=== PATIENT | female | born 1980 | race Caucasian/White ===

== ENCOUNTER → 2024-09-13 | Outpatient (CLI) | payer BC, SELFPAY ==
--- NOTE | 2024-09-13 08:02 | US_ITS ---
EXAM: US ABDOMEN COMPLETE CLINICAL INDICATION: Bloated/ distended abdomen TECHNIQUE: Real-time ultrasound of the abdomen with image documentation. COMPARISON: No relevant prior studies available. FINDINGS: LIVER: No significant abnormality. There is normal echotexture. No focal hepatic lesion. No intrahepatic biliary ductal dilation. GALLBLADDER: Gallbladder sludge is identified. Possible 5 mm polyp rather than a stone as there is no significant shadowing in this lesion appears fixed to the gallbladder wall. No gallbladder wall thickening. Negative sonographic García''s sign. No pericholecystic fluid. COMMON BILE DUCT: Normal as visualized. The proximal common bile duct is within normal limits for the patient''s age. PANCREAS: Normal as visualized. No focal abnormality is demonstrated in the pancreas. No pancreatic ductal dilatation. KIDNEYS: No significant abnormality. There is no hydronephrosis. No shadowing calculus. No focal lesion or perinephric collection is demonstrated. SPLEEN: No significant abnormality. The spleen is normal in size and homogeneous in echotexture. AORTA: No significant abnormality. Submitted longitudinal images of the intra-abdominal aorta demonstrate no gross abnormalities and are unremarkable. INFERIOR VENA CAVA: No significant abnormality. The IVC is patent. FREE FLUID: There is no free fluid. US/Abdomen Complete IMPRESSION: 1. Sludge in the gallbladder. Possible 5 mm polyp rather than a stone as there is no significant shadowing in this lesion appears fixed to the gallbladder wall. Consider short interval follow-up in 1-2 months with optimized technique and patient preparation. 2. No cholecystitis or additional acute findings. Electronically Signed: Be Rothman DO at 21:45 EDT ,
== END | disposition home or self-care (01) ==
PROVIDERS: PCP Internal Medicine; Referring Provider Internal Medicine; Visit Provider Internal Medicine
DX: R14.0 Abdominal distension (gaseous) (principal)
CPT/HCPCS: 76700

== ENCOUNTER → 2024-09-16 | Outpatient (CLI) | payer BC, SELFPAY ==
--- NOTE | 2024-09-16 08:29 | US_ITS ---
STUDY: ULTRASOUND OF THE FEMALE PELVIS - COMPLETE REASON FOR EXAM: Female, 43 years old. -- Vaginal bleeding, abnormal LMP: Unknown. TECHNIQUE: Transabdominal and Transvaginal TECHNICAL QUALITY: Adequate. COMPARISON: None. FINDINGS: The uterus is anteverted and is in a midline position. The uterus measures 8 cm x 4.6 cm x 4 cm. There is a Nabothian cyst of the cervix. The endometrium measures 4 mm in thickness, and is hyperechoic. There is no demonstrated endometrial mass. There is no demonstrated myometrial mass. I.U.D. - The patient does not have an I.U.D. The right ovary is visualized. The right ovary measures 3.1 cm x 3.3 cm x 1.6 cm. There is a 2.1 cm x 1.9 cm x 1.5 cm right ovarian cyst. There is no visualized right adnexal mass or complex lesion. There is normal arterial and normal venous vascularity. The left ovary is visualized. The left ovary measures 2.3 cm x 2.2 cm x 1.3 cm. There is no left ovarian cyst or ovarian mass. There is no visualized left adnexal mass or complex lesion. There is normal arterial and normal venous vascularity. There is no fluid in the cul-de-sac. US/Pelvic w/ Transvaginal IMPRESSION: 2.1 cm x 1.9 cm x 1.5 cm right ovarian cyst. Electronically Signed: Nahum Pfeiffer MD at 14:01 EDT ,
== END | disposition home or self-care (01) ==
PROVIDERS: PCP Internal Medicine; Referring Provider Internal Medicine; Visit Provider Internal Medicine
DX: N93.9 Abnormal uterine and vaginal bleeding, unspecified (principal)
CPT/HCPCS: 76830; 76856